=== PATIENT | female | born 1975 | race African-American/Black ===

== ENCOUNTER 2016-09-08 20:27 | Emergency (ER) | payer OTHER ==
[2016-09-08 20:41] VITALS: BP 113/64; PULSE 116; TEMP 98.3; BMI 52.1
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
[2016-09-08] MEDS ORDERED: KETOROLAC TROMETHAMINE 60 MG/2 ML VIAL IM ONE (21:27)
[2016-09-08] MEDS ORDERED: KETOROLAC TROMETHAMINE 60 MG/2 ML VIAL ONE (22:09)
== END 2016-09-08 22:59 | disposition home or self-care (01) ==
LOC: JERFT 20:27
PROC: 3E0233Z Introduction of Anti-inflammatory into Muscle, Percutaneous Approach (ICD-10-PCS; principal; 2016-09-08)
DX: S99.821A Other specified injuries of right foot, initial encounter (principal); V78.4XXA Person boarding or alighting from bus injured in noncollision transport accident, initial encounter; Y92.413 State road as the place of occurrence of the external cause; Y93.89 Activity, other specified; Y99.8 Other external cause status; I10 Essential (primary) hypertension; E11.9 Type 2 diabetes mellitus without complications; Z79.4 Long term (current) use of insulin; E66.01 Morbid (severe) obesity due to excess calories; Z68.43 Body mass index [BMI] 50.0-59.9, adult
CPT/HCPCS: 73630-TC-RT; 73660-TC; 84703; 96372; 99281-25

== ENCOUNTER 2018-04-24 05:55 | Day surgery (SDC) | payer OTHER ==
[2018-04-23 10:35] VITALS: BMI 46.5
[2018-04-24] MEDS ORDERED: EPINEPHrine 1:1,000 1 MG/1 ML - 30ML VIAL (INJECTION) ONE (07:15)
[2018-04-24] MEDS ORDERED: ROPIVACAINE HCL 0.5% 30ML VIAL ONE (08:01)
[2018-04-24] MEDS ORDERED: MIDAZOLAM HCL 2 MG/2 ML SINGLE DOSE VIAL ONE ×2 (08:01→08:39)
[2018-04-24] MEDS ORDERED: PROPOFOL 20 ML ONE ×2 (08:39)
[2018-04-24] MEDS ORDERED: SUCCINYLCHOLINE CHLORIDE 200 MG/10 ML VIAL ONE (08:39)
[2018-04-24] MEDS ORDERED: CLINDAMYCIN PHOSPHATE 600 MG/4 ML VIAL ONE (09:18)
[2018-04-24] MEDS ORDERED: KETOROLAC TROMETHAMINE 30 MG/1 ML VIAL ONE (09:18)
[2018-04-24] MEDS ORDERED: DEXAMETHASONE SOD PHOSPHATE 4 MG/1 ML VIAL ONE (09:18)
[2018-04-24] MEDS ORDERED: ONDANSETRON 4 MG/2 ML VIAL ONE (09:18)
[2018-04-24] MEDS ORDERED: LABETALOL HCL 5 MG/1 ML (100MG/20 ML VIAL) ONE (09:18)
[2018-04-24] MEDS ORDERED: ONDANSETRON 4 MG/2 ML VIAL IVPUSH PRN (09:48)
[2018-04-24] MEDS ORDERED: PROMETHAZINE HCL 25 MG/1 ML VIAL IVPUSH PRN (09:48)
[2018-04-24] MEDS ORDERED: PROMETHAZINE HCL 25 MG/1 ML VIAL ONE (10:10)
[2018-04-24 11:40] VITALS: BP 122/74; PULSE 75
[2018-04-24] MEDS ORDERED: ACETAMINOPHEN 325 MG TABLET (FP) PO SCH (12:00)
[2018-04-24 12:27] VITALS: TEMP 98
--- NOTE | 2018-04-27 09:05 | OP ---
DATE OF OPERATION: 04/24/2018 SURGEON: Bertha Malik MD PHOTOGRAMMETRIC COMPILATION SPECIALIST: RAHUL Wahl PREOPERATIVE DIAGNOSES: 1. Right shoulder rotator cuff tear. 2. Right shoulder adhesive capsulitis. 3. Right shoulder impingement syndrome. 4. Right shoulder acromioclavicular degenerative joint disease. 5. Right shoulder superior labral tear, anterior and posterior synovitis. 6. Right shoulder long head biceps tear. POSTOPERATIVE DIAGNOSES: 1. Right shoulder rotator cuff tear. 2. Right shoulder adhesive capsulitis. 3. Right shoulder impingement syndrome. 4. Right shoulder acromioclavicular degenerative joint disease. 5. Right shoulder superior labral tear, anterior and posterior synovitis. 6. Right shoulder long head biceps tear. PROCEDURE: 1. Right shoulder arthroscopy with arthroscopic rotator cuff repair, CPT code 21773. 2. Right shoulder arthroscopy with lysis and resection of adhesions, CPT code 30242. 3. Right shoulder arthroscopy with subacromial decompression, CPT code 2926. 4. Right shoulder arthroscopy with resection of distal clavicle acromioclavicular joint, CPT code 2924. 5. Right shoulder arthroscopy with debridement, CPT code 2923. 6. Right shoulder arthroscopy with open release of biceps, CPT code 86544. FINDINGS: 1. Type 4 superior labral tear anterior and posterior with extension to the biceps tendon. 2. Anterior and posterior labral fraying. 3. Glenohumeral synovitis with adhesions anteriorly. 4. A 90% tear supraspinatus anteriorly. 5. Central biceps tear with extension of grade 4 labral tear. 6. Type 2-3 acromion with anterolateral spurring. 7. Inferior distal clavicle with acromioclavicular joint disease. 8. Thickened scar subacromial space with adhesions and scar tissue. REPAIR TYPE: Single mattress suture was placed into the supraspinatus and secured to a bleeding bone bed along the greater tuberosity. Biceps tendon was released to allow to heal into scar tissue and was released at the labrum, which was then taken down to the superior labrum. PROCEDURE: Informed consent was obtained. The patient was taken to the operating room, where the upper extremity was prepped and draped in a sterile fashion. The shoulder was manipulated for a full range of motion. A posterior incision portal was made and directed to the glenohumeral joint. Under direct visualization, an anterior incision and portal was made. Extensive synovitis, as well as chondral injuries throughout the glenohumeral joint were debrided and removed. Any identified labral injuries, including the superior labral tear, anterior and posterior, and anterior labrum torn portions, were removed as well. The rotator cuff was visualized and noted to have a full-thickness tear. The edges were debrided. The posterior incision portal was redirected to the subacromial space where a lateral incision portal was made. Excessive and thickened scar tissue noted throughout the subacromial space, including bursal and scar tissue, were removed. The type 2 acromion was converted into a flattened type 1 using a bur for subacromial decompression. The distal inferior spur at the distal clavicle was also debrided with the use of an accessory portal in the acromioclavicular joint. The edges of the rotator cuff were identified. Sutures were placed into the rotator cuff and secured using anchors through the greater tuberosity. Prior to securing, a bleeding bed was made using a small bur, creating a bleeding surface of the rotator cuff insertion. The shoulder was then drained, a single suture was placed in all portals, a sterile dressing was placed and the patient was transferred to the recovery room without complication. The PA listed above was present and assisted at surgery. Their presence was absolutely medically necessary for the completion of the procedure. They helped hold the arthroscopy, pass instruments (and implants when indicated) and the procedure could not have been completed without their assistance. BERTHA MALIK M.D. [id number]
--- NOTE | 2018-04-28 13:57 | PATH ---
Surgical Pathology Report Patient Name: KEVIN OBRIEN Med. Rec. #: [id number] /Age/Gender: 1975 (Age: 42) / F Account: [id number] Location: [facility] Taken: 04/24/2018 Received: 04/24/2018 Reported: 04/28/2018 Physicians: Yuo Gutierrez M.D. Specimen(s) Received RIGHT SHOULDER SHAVINGS Clinical History Impingement syndrome right shoulder Final Diagnosis SHOULDER SHAVINGS, RIGHT, ARTHROSCOPY, ROTATOR CUFF REPAIR: FRAGMENTS OF BENIGN CARTILAGE, DENSE FIBROCONNECTIVE TISSUE, ADIPOSE TISSUE, SYNOVIUM, AND SKELETAL MUSCLE. Electronically Signed Sarah Laboy M.D. Gross Description Received in formalin, labeled "right shoulder shavings," is a 4.5 x 4.5 x 0.4 cm. aggregate of aleman-yellow soft tissue fragments. A inside outside sales representative portion is submitted in one cassette. 04/27/2018 saudi04/27/2018
== END 2018-04-24 12:10 | disposition home or self-care (01) ==
LOC: FASU 05:55
PROVIDERS: ATTEND Orthopaedic Surgery
PROC: 0RNJ4ZZ Release Right Shoulder Joint, Percutaneous Endoscopic Approach (ICD-10-PCS; 2018-04-24)
PROC: 0RBJ4ZZ Excision of Right Shoulder Joint, Percutaneous Endoscopic Approach (ICD-10-PCS; 2018-04-24)
PROC: 0PB94ZZ Excision of Right Clavicle, Percutaneous Endoscopic Approach (ICD-10-PCS; 2018-04-24)
PROC: 0LS10ZZ Reposition Right Shoulder Tendon, Open Approach (ICD-10-PCS; 2018-04-24)
PROC: 0LQ14ZZ Repair Right Shoulder Tendon, Percutaneous Endoscopic Approach (ICD-10-PCS; principal; 2018-04-24 08:51)
DX: M75.121 Complete rotator cuff tear or rupture of right shoulder, not specified as traumatic (principal); M75.01 Adhesive capsulitis of right shoulder; M75.41 Impingement syndrome of right shoulder; M19.011 Primary osteoarthritis, right shoulder; M24.111 Other articular cartilage disorders, right shoulder; M65.811 Other synovitis and tenosynovitis, right shoulder; M66.821 Spontaneous rupture of other tendons, right upper arm
CPT/HCPCS: 81025; 82962; 88304-TC; 94760

== ENCOUNTER 2018-10-22 22:13 | Emergency (ER) | payer OTHER ==
[2018-10-22 22:59] VITALS: TEMP 97.9; BMI 46.3
[2018-10-22 23:29] LABS: BASO % 1.1 % (0-2.0); EOS % 0.4 % (0-4.5); HEMOGLOBIN 13.3 GM/dL (10.7-15.3); LYMPH % 20.1 % (8-40); MCH 24.7 pg (25.7-33.7); MCHC 32.4 g/dl (32.0-36.0); MEAN CELL VOLUME 76.3 fl (80-96); MEAN PLT VOLUME 8.3 fl (7.5-11.1); MONO % 4.4 % (3.8-10.2); PLATELET COUNT 280 K/MM3 (134-434); RBC 5.38 M/mm3 (3.60-5.2); RDW 14.6 % (11.6-15.6); WHITE BLOOD COUNT 9.3 K/mm3 (4.0-10.0)
[2018-10-22 23:54] LABS: ALBUMIN 3.6 g/dl (3.4-5.0); ALK PHOS 91 U/L (45-117); ANION GAP 12 MMOL/L (8-16); BILIRUBIN,TOTAL 0.2 mg/dL (0.2-1); BLOOD UREA NITROGEN 10.7 mg/dL (7-18); CALCIUM 9.3 mg/dL (8.5-10.1); CHLORIDE 102 mmol/L (98-107); CO2 27 mmol/L (21-32); CREATININE 0.8 mg/dL (0.55-1.3); GLUCOSE,RANDOM 283 mg/dL (74-106); LIPASE 354 U/L (73-393); N-TERMINAL BNP 106.2 pg/ml (5-125); POTASSIUM 3.8 mmol/L (3.5-5.1); SGOT/AST 10 U/L (15-37); SGPT/ALT 11 U/L (13-61); SODIUM 140 mmol/L (136-145)
[2018-10-23 00:01] LABS: INR 0.92 (0.83-1.09); PROTHROMBIN TIME (PATIENT) 10.8 SEC (9.7-13.0)
[2018-10-23 00:04] LABS: ACTIVATED PTT 37.4 SECONDS (25.2-36.5)
[2018-10-23] MEDS ORDERED: ACETAMINOPHEN 1000 MG/100 ML VIAL (NON FORMULARY) IVPB ONE (00:25)
[2018-10-23] MEDS ORDERED: ACETAMINOPHEN INJECTION 100 ML IVPB ONE (00:33)
--- NOTE | 2018-10-23 02:07 | PDOC ---
History of Present Illness - General Chief Complaint: Chest Pain Stated Complaint: CHEST PAIN Time Seen by Provider: 10/22/18 23:08 History Source: Patient Exam Limitations: No Limitations - History of Present Illness Initial Comments: 10/22/18 23:25 Chanda Bond is a 42F with PMH IDDM with insulin pump, HTN, HLD, asthma, obesity, and a history of 4x miscarriages and family history of PE in both parents presenting with SOB, pleuritic back pain, and chest pain. Patient reports having new onset chest pain starting yesterday morning, describes as a sharp pain to the middle chest that radiates down to her upper stomach in a band across her belly. Also reports back pain across her upper back that worsens as she breathes. Initially hesitant to go to hospital because she was admitted a few years ago when she presented with a similar presentation , says she was diagnosed with a blood clot in her lungs and was transferred out for a cardiac cath that was normal, not on AC at this time. Family history of PE, personal history of multiple miscarriages, has not been evaluated for a genetic coagulopathy. Takes carbamazepine daily, with reglan for nausea from this drug. Denies fever, chills, nausea, vomiting, back pain, changes to vision, dizziness. Past History - Past Medical History Allergies/Adverse Reactions: Allergies Allergy/AdvReac Type Severity Reaction Status Date / Time ciprofloxacin [From Cipro] Allergy Severe edema Verified 04/23/18 10:39 arm;pain.itchy;tongue/throat edema Aminoglycosides Allergy Verified 04/23/18 10:39 Penicillins Allergy Verified 04/23/18 10:39 sulfamethoxazole Allergy Verified 04/23/18 10:39 [From Bactrim] tomato Allergy Verified 04/23/18 10:39 trimethoprim [From Bactrim] Allergy Verified 04/23/18 10:39 gentamycin Allergy Severe Itching Uncoded 04/23/18 10:39 fruit Allergy Uncoded 04/23/18 10:39 Home Medications: Ambulatory Orders Albuterol 0.083% Nebulizer Lina [Ventolin 0.083% Nebulizer Soln -] 1 neb NEB Q4H PRN 11/23/15 Amlodipine Besylate [Norvasc -] 10 mg PO DAILY 11/23/15 Atenolol [Tenormin -] 25 mg PO DAILY 11/23/15 EPINEPHrine (EPI-PEN 0.3MG) [Epipen 0.3MG -] 0.3 mg IM ASDIR 11/23/15 Fluticasone/Salmeterol [Advair 250-50 Diskus] 1 each IH BID 11/23/15 Lisinopril [Prinivil] 20 mg PO DAILY 11/23/15 Loratadine [Claritin -] 10 mg PO DAILY 11/23/15 Lovastatin [Altoprev] 40 mg PO DAILY 11/23/15 Montelukast Na [Singulair -] 10 mg PO HS 11/23/15 Omeprazole 40 mg PO DAILY 11/23/15 Oxycodone HCl 10 mg PO TID PRN 11/23/15 Valsartan [Diovan] 160 mg PO DAILY 11/23/15 Albuterol Sulfate [Proair Respiclick] 90 mcg IH Q4H PRN 11/25/15 Aspirin [ASA -] 81 mg PO DAILY #30 tab.chew 11/26/15 Carbamazepine Xr [Tegretol Xr -] 100 mg PO DAILY 04/23/18 Carbamazepine Xr [Tegretol Xr -] 200 mg PO HS 04/23/18 Fluticasone/Salmeterol [Advair 250-50 Diskus] 1 each IH DAILY PRN 04/23/18 Ibuprofen 600 mg PO TID PRN 04/23/18 Insulin Pump [Insulin Pump - (Nf)] 1 each IV DAILY 04/23/18 Anemia: No Asthma: Yes Cancer: No Cardiac Disorders: Yes (CARDIAC CATH TIMES 2) CVA: No COPD: No CHF: No Dementia: No Diabetes: Yes GI Disorders: No Disorders: No HTN: Yes Hypercholesterolemia: Yes Liver Disease: No Seizures: Yes (IN MARCH 2018) Thyroid Disease: No - Surgical History Abdominal Surgery: No Appendectomy: No Cardiac Surgery: Yes (cath no stent TIMES 2) Cholecystectomy: No Lung Surgery: No Neurologic Surgery: No Orthopedic Surgery: Yes (ELBOW RIGHT , LEFT SHOULDER) - Immunization History Td Vaccination: (unsure) Immunization Up to Date: (unknown) - Suicide/Smoking/Psychosocial Hx Smoking Status: No Smoking History: Never smoked Years of Tobacco Use: 0 Have you smoked in the past 12 months: No Number of Cigarettes Smoked Daily: 0 Cigars Per Day: 0 Hx Alcohol Use: No Drug/Substance Use Hx: No Substance Use Type: None Hx Substance Use Treatment: No Review of Systems - Review of Systems Able to Perform ROS?: Yes Is the patient limited Korean proficient: No Constitutional: Yes: Symptoms Reported. No: Chills, Fever HEENTM: No: Eye Pain, Blurred Vision, Hearing Loss, Difficulty Swallowing Respiratory: Yes: Shortness of Breath, SOB at Rest. No: Cough, Productive cough Cardiac (ROS): Yes: Chest Pain (epigastric pain, pleuritic back pain), Palpitations (fast heart rate per patient). No: Irregular Heart Rate, Syncope ABD/GI: No: Constipated, Diarrhea, Difficulty Swallowing, Nausea, Vomiting : No: Burning, Dysuria, Discharge, Frequency, Flank Pain, Hematuria, Incontinence Musculoskeletal: No: Back Pain, Muscle Pain, Neck Pain Integumentary: No: Symptoms Reported Neurological: Yes: Headache. No: Numbness, Paresthesia, Unsteady Gait Endocrine: No: Symptoms Reported Hematologic/Lymphatic: Yes: Symptoms Reported, Blood Clots (history of PE, not on AC) All Other Systems: Reviewed and Negative *Physical Exam - Vital Signs Last Vital Signs Temp Pulse Resp BP Pulse Ox 97.9 F 99 H 17 156/99 99 10/22/18 22:20 10/22/18 22:20 10/22/18 22:20 10/22/18 22:20 10/22/18 22:20 ED Treatment Course - LABORATORY CBC & Chemistry Diagram: 10/22/18 23:10 10/22/18 23:10 - ADDITIONAL ORDERS Additional order review: Laboratory Results 10/22/18 10/22/18 10/22/18 23:40 23:10 23:10 PT with INR 10.80 INR 0.92 PTT (Actin FS) 37.4 H Sodium 140 Potassium 3.8 Chloride 102 Carbon Dioxide 27 Anion Gap 12 BUN 10.7 Creatinine 0.8 Est GFR (CKD-EPI)AfAm 106.88 Est GFR (CKD-EPI)NonAf 92.22 Random Glucose 283 H Calcium 9.3 Total Bilirubin 0.2 AST 10 L ALT 11 L Alkaline Phosphatase 91 Creatine Kinase 106 Troponin I < 0.02 B-Natriuretic Peptide 106.2 Total Protein 7.0 Albumin 3.6 Lipase 354 Serum , Qual Negative 10/22/18 23:10 RBC 5.38 H MCV 76.3 L MCHC 32.4 RDW 14.6 MPV 8.3 Neutrophils % 74.0 Lymphocytes % 20.1 D Monocytes % 4.4 Eosinophils % 0.4 Basophils % 1.1 - RADIOLOGY Radiology Studies Ordered: Category Date Time Status CHEST CTA [CT] Stat CT Scan 10/23/18 00:01 Taken - Medications Given in the ED: ED Medications Discontinued Medications Generic Name Dose Route Start Last Admin Trade Name Freq PRN Reason Stop Dose Admin Acetaminophen 1,000 mg 10/23/18 00:25 10/23/18 00:40 Ofirmev Injection - IVPB 10/23/18 00:26 1,000 mg ONCE ONE Administration Medical Decision Making - Medical Decision Making 10/22/18 23:25 Chanda Bond is a 42F with PMH IDDM with insulin pump, HTN, HLD, asthma, obesity, and a history of 4x miscarriages and family history of PE in both parents presenting with SOB, pleuritic back pain, and chest pain. History highly concerning for PE vs. SD vs. PTX vs. PNA, will evaluate via: CTA CMP CBC CP ECG Coags BNP 10/23/18 01:35 ECG shows NSR without any concerning features. 10/23/18 02:01 CTA read negative for PE Labs WNL, no elevated WBC, BNP WNL, no elevated troponins. Given history of pain for last 48 hours, less likely to be acute SD. HEART score is 2. Will discharge home with PCP follow-up for evaluation of her probable clotting disorder. *DC/Admit/Observation/Transfer Diagnosis at time of Disposition: Atypical chest pain - Discharge Dispostion Disposition: HOME Condition at time of disposition: Stable - Referrals Referrals: ON STAFF,NOT [Primary Care Provider] - - Patient Instructions Printed Discharge Instructions: DI for Atypical Chest Pain Additional Instructions: Today you were evaluated for chest pain and shortness of breath. We were most concerned about a blood clot in your lungs called a pulmonary embolism, and we evaluated for this with a CT scan of your lungs that did not show any signs of a blood clot. Your blood labs do not show signs of infection, anemia, or electrolyte abnormalities, and there is no evidence of a heart attack on your labs or the ECG. You chest pain is likely caused by a muscular or gastrointestinal cause, and there is no emergent disease that needs treatment at this time. Please see your primary doctor in the next 3 days for further evaluation of your chest pain. Please discuss your history of blood clots with your doctor, as you have a lot of family members and a personal history of blood clots that should be evaluated further with genetic testing. If you have worsening chest pain, suddenly become unable to breathe, have swelling in one leg, have changes to your vision, start having fever/chills, nausea, vomiting, or any other new or concerning symptoms, please return to the closest emergency room. - Post Discharge Activity
--- NOTE | 2018-10-23 02:44 | PDOC ---
Attending Attestation - Resident Resident Name: Michael Shah - ED Attending Attestation I have performed the following: I have examined & evaluated the patient, The case was reviewed & discussed with the resident, I agree w/resident's findings & plan, Exceptions are as noted - HPI HPI: 10/23/18 07:59 42F pmh DM, HTN, HLD, asthma, frequent miscarriage, hx of PE here with pleuritic central cp and sob - Physicial Exam PE: 10/23/18 08:00 Well appearing, NAD, AOx3 NCAT Neck supple LCTAB, normal wob Abd soft, nt, nd Extremities, no swelling, +symmetry - Medical Decision Making 10/23/18 08:01 High pre-test probability of PE also consider pna, acs, less likely ptx f/u ct pe f/u labs, ekg Dispo per clinical course
[2018-10-23 04:04] VITALS: BP 152/101; PULSE 96
--- NOTE | 2018-10-23 14:02 | EKG ---
Test Reason : Blood Pressure : / mmHG Vent. Rate : 095 BPM Atrial Rate : 095 BPM P-R Int : 160 ms QRS Dur : 080 ms QT Int : 352 ms P-R-T Axes : 065 -11 033 degrees QTc Int : 442 ms NORMAL SINUS RHYTHM NORMAL ECG WHEN COMPARED WITH ECG OF 23-NOV-2015 09:56, SINUS RHYTHM IS NO LONGER WITH 2ND DEGREE A-V BLOCK (MOBITZ I) BORDERLINE CRITERIA FOR ANTERIOR INFARCT ARE NO LONGER PRESENT Confirmed by DAVIAN MEYERS MD ([id number]) on 10/23/2018 2:02:03 PM Referred By: Confirmed By:DAVIAN MEYERS MD
== END 2018-10-23 03:30 | disposition home or self-care (01) ==
LOC: JER 22:13
PROC: 3E033NZ Introduction of Analgesics, Hypnotics, Sedatives into Peripheral Vein, Percutaneous Approach (ICD-10-PCS; principal; 2018-10-22)
DX: R07.89 Other chest pain (principal); E11.9 Type 2 diabetes mellitus without complications; I10 Essential (primary) hypertension; E78.5 Hyperlipidemia, unspecified; J45.909 Unspecified asthma, uncomplicated
CPT/HCPCS: 36415; 71275-TC; 80053; 82550; 83690; 83880; 84484; 84703; 85025; 85610; 85730; 93005; 93010; 99284-25; J0131

== ENCOUNTER 2019-12-28 13:54 | Emergency (ER) | payer OTHER ==
[2019-12-28 14:02] VITALS: BP 144/81; PULSE 99; TEMP 97.8; BMI 52.0
[2019-12-28] MEDS ORDERED: INDOMETHACIN 50 MG CAPSULE PO ONE (14:25)
[2019-12-28] MEDS ORDERED: COLCHICINE 0.6 MG CAP PO ONE (14:35)
[2019-12-28] MEDS ORDERED: COLCHICINE 0.6 MG CAP ONE (14:37)
[2019-12-28 15:14] LABS: URIC ACID 3.8 mg/dL (2.6-7.2)
== END 2019-12-28 15:29 | disposition home or self-care (01) ==
LOC: JERFT 13:54
DX: M79.675 Pain in left toe(s) (principal)
CPT/HCPCS: 36415; 73660-TC-LT-FY; 84550; 85651; 86140; 99284-25